=== PATIENT | female | born 1935 | race Caucasian/White ===

== ENCOUNTER 2017-08-22 08:08 | Emergency (ER) | payer OTHER ==
--- NOTE | 2017-08-22 09:24 | RAD ---
FRONTAL VIEW CHEST: Date: 08/22/17 No prior comparison. CLINICAL HISTORY: Chest pain. FINDINGS: There is prominence of the right paramediastinal region. This could be related to enlarged right atri um, although this is nonspecific and limited in assessment on the basis of frontal view. There is ret rocardiac density which may be on the basis of hiatal hernia. Vascular calcification present. There i s linear density at the left lung base indicative of atelectasis. IMPRESSION: 1. Left basilar atelectasis. 2. Prominent right paramediastinal region which could be on the basis of enlarged heart. Follow-up d edicated 2 view chest may be obtained for further evaluation. POS: [facility]
[2017-08-22 09:28] LABS: #Basophils 0.1 thou/uL (0.0-0.2); #Eosinphils 0.1 thou/uL (0.0-0.7); #Lymphocytes 1.1 thou/uL (1.20-3.40); #Monocytes 0.5 thou/uL (0.11-0.59); #Neutrophils 1.9 thou/uL (1.40-6.50); %Basophils 1.8 % (0.0-1.0); %Eosinophils 2.1 % (0.0-10.0); %Lymphocytes 30.9 % (21.0-51.0); %Monocytes 12.6 % (0.0-10.0); %Neutrophils 52.7 % (42.0-75.0); Hemoglobin 13.4 g/dL (12.0-16.0); Mean Corpuscular HGB CONC 32.9 g/dL (32.0-36.0); Mean Corpuscular Hemoglobin 30.5 pg (27.0-31.0); Mean Corpuscular Volume 92.9 fl (81.0-99.0); Mean Platelet Volume 8.2 fL (7.4-10.4); Platelet Count 171 thou/uL (130-400); RBC Distribution Width 13.3 % (11.5-14.5); Red Blood Cell (RBC) Count 4.37 mill/uL (4.20-5.40); White Blood Cell (WBC) Count 3.6 thou/uL (4.8-10.8)
[2017-08-22 09:47] LABS: ALT (SGPT) 8 U/L (8-55); AST (SGOT) 13 U/L (5-34); Albumin 3.5 g/dL (3.4-4.8); Alkaline Phosphatase 74 U/L (40-150); Anion Gap 15 mmol/L (10-20); BUN (Urea Nitrogen) 23 mg/dL (9.8-20.1); Bilirubin, Total 0.4 mg/dL (0.2-1.2); Calc. Creatinine Clearance 0 mL/min (70-130); Calcium 8.9 mg/dL (7.8-10.44); Carbon Dioxide 23 mmol/L (23-31); Chloride 108 mmol/L (98-107); Estimated GFR-MDRD 48; Glucose 103 mg/dL (83-110); Potassium 4.1 mmol/L (3.5-5.1); Protein, Total 6.5 g/dL (6.0-8.3); Sodium 142 mmol/L (136-145)
[2017-08-22 09:49] LABS: CKMB 1.1 ng/mL (0-6.6); Troponin I Less than 0.010 ng/mL (< 0.028)
--- NOTE | 2017-08-22 10:10 | RAD ---
RIGHT HIP TWO VIEWS: HISTORY: An 82-year-old female with a history of right hip pain following a fall this morning. FINDINGS: Severe right hip joint arthrosis changes are noted with joint space loss. Hypertrophic osteophytosis . No evidence for acute fracture. IMPRESSION: Right hip joint arthrosis without acute fracture or dislocation. If the patient cannot ambulate at pre-trauma levels, consider follow-up right hip MRI for further ass essment. POS: [facility]
[2017-08-22] MEDS ORDERED: Benzonatate 100 MG CAP ONE (11:52)
[2017-08-22] MEDS ORDERED: Sodium Chloride 0.9% 1,000 ML BAG ONE (13:40)
== END 2017-08-22 12:00 | disposition home or self-care (01) ==
LOC: MADERS 08:08
DX: J10.1 Influenza due to other identified influenza virus with other respiratory manifestations (principal); M19.90 Unspecified osteoarthritis, unspecified site; I10 Essential (primary) hypertension; K21.9 Gastro-esophageal reflux disease without esophagitis; H54.8 Legal blindness, as defined in USA; Z79.891 Long term (current) use of opiate analgesic; Z79.899 Other long term (current) drug therapy
CPT/HCPCS: 71045; 80053; 82553; 84484; 85025; J7050

== ENCOUNTER 2017-10-27 08:34 | Emergency (ER) | payer MEDICARE ==
[2017-10-27] MEDS ORDERED: Aspirin 325 MG TAB ONE (09:02)
[2017-10-27] MEDS ORDERED: Ketorolac Tromethamine 30 MG/ML VIAL ONE (09:02)
[2017-10-27] MEDS ORDERED: Ondansetron HCl/PF 4 MG/2 ML Vial ONE (09:02)
[2017-10-27 09:21] LABS: PTT 32.5 SEC (22.9-36.1); Prothrombin Time 13.2 SEC (12.0-14.7)
[2017-10-27 09:25] LABS: ALT (SGPT) 7 U/L (8-55); AST (SGOT) 11 U/L (5-34); Albumin 3.9 g/dL (3.4-4.8); Alkaline Phosphatase 76 U/L (40-150); Anion Gap 15 mmol/L (10-20); BUN (Urea Nitrogen) 21 mg/dL (9.8-20.1); Bilirubin, Total 0.3 mg/dL (0.2-1.2); Calc. Creatinine Clearance 0 mL/min (70-130); Calcium 9.6 mg/dL (7.8-10.44); Carbon Dioxide 21 mmol/L (23-31); Chloride 108 mmol/L (98-107); Estimated GFR-MDRD 54; Globulin 2.7 g/dL (2.4-3.5); Glucose 115 mg/dL (83-110); Potassium 4.2 mmol/L (3.5-5.1); Protein, Total 6.6 g/dL (6.0-8.3); Sodium 140 mmol/L (136-145)
[2017-10-27 09:27] LABS: Hemoglobin 13.7 g/dL (12.0-16.0); Mean Corpuscular HGB CONC 33.1 g/dL (32.0-36.0); Mean Corpuscular Volume 90.7 fL (81.0-99.0); Mean Platelet Volume 7.3 fL (7.4-10.4); Platelet Count 240 thou/uL (130-400); RBC Distribution Width 13.1 % (11.5-14.5); Red Blood Cell (RBC) Count 4.57 mill/uL (4.20-5.40); White Blood Cell (WBC) Count 6.7 thou/uL (4.8-10.8)
[2017-10-27 09:28] LABS: #Basophils 0.1 thou/uL (0.0-0.2); #Eosinphils 0.1 thou/uL (0.0-0.7); #Lymphocytes 1.7 thou/uL (1.20-3.40); #Monocytes 0.5 thou/uL (0.11-0.59); #Neutrophils 4.2 thou/uL (1.40-6.50); %Basophils 1.2 % (0.0-1.0); %Eosinophils 1.6 % (0.0-10.0); %Lymphocytes 25.8 % (21.0-51.0); %Monocytes 8.2 % (0.0-10.0); %Neutrophils 63.1 % (42.0-75.0); Manual Diff?? NO
[2017-10-27 10:04] LABS: Bilirubin Negative (Negative); Blood, Urine Negative (Negative); Clarity Clear (Clear); Glucose, Urine (Dipstick) Negative (Negative); Leukocyte Negative (Negative); Nitrite Negative (Negative); Protein, Urine (Dipstick) Negative (Neg-Trace); Specific Gravity, Urine 1.015 (1.005-1.030); Urobilinogen 0.2 mg/dL (0.2-1.0)
[2017-10-27] MEDS ORDERED: Iopamidol 370 76% 100 ML VIAL ONE (10:05)
--- NOTE | 2017-10-27 10:05 | RAD ---
UPRIGHT PORTABLE CHEST 1 VIEW: HISTORY: An 82-year-old female with a history of weakness. COMPARISON: 08/22/17. FINDINGS: Poor inspiration. Minimal cardiomegaly. Monitor leads overlie the chest. Increased density in the retrocardiac region, possibly evidence for a hiatal hernia. IMPRESSION: Cardiomegaly. No confluent pneumonia, overt edema, or pleural effusion. Overall stable chest from p rior exam. POS: [facility]
[2017-10-27 10:10] LABS: Bacteria/HPF 1+ HPF (None Seen); RBC/HPF None Seen HPF (0-3); WBC/HPF 0-3 HPF (0-3)
--- NOTE | 2017-10-27 15:36 | CT ---
CONTRAST ENHANCED CT IMAGES OF ABDOMEN AND PELVIS 10/27/17 HISTORY: Low abdominal pain. Contrast enhanced CT images of the abdomen and pelvis demonstrate the lung bases to be unremarkable. No evidence of free intraperitoneal air is seen. There is a moderate sized paraesophageal hiatal hernia. The liver and spleen are unremarkable. The gallbladder has been surgically removed. The pancreas is u nremarkable. The right adrenal gland is unremarkable. Small area of fullness is seen in the left adrenal gland, to o small to characterize further. Followup CT in six months may be of use to evaluate for interval barrett nge. The kidneys are unremarkable except for somewhat atrophied. Atherosclerotic calcification of the abdominal aorta seen. No dilated loops of small bowel is seen. Numerous colonic diverticula are present without evidence of diverticulitis. This is especially promi nent in the sigmoid colon. Numerous lumbar degenerative changes seen. There is a small umbilical hernia without evidence of herniation or fat into it. The patient has had a previous hysterectomy. IMPRESSION: 1. Paraesophageal hernia. 2. Small umbilical hernia. 3. Colonic diverticulosis. POS: [facility]
== END 2017-10-27 12:34 | disposition home or self-care (01) ==
LOC: MADERS 08:34
DX: K57.92 Diverticulitis of intestine, part unspecified, without perforation or abscess without bleeding (principal); I10 Essential (primary) hypertension; K21.9 Gastro-esophageal reflux disease without esophagitis; Z79.899 Other long term (current) drug therapy
CPT/HCPCS: 71045; 74177; 80053; 81001; 83880; 85025; 85610; 85652; 85730; 86140; 87040; 87081; 87086; 87430; 87804; 93005; 94760; 96374; 96375; J1885; J2405

== ENCOUNTER 2018-08-07 10:22 | Emergency (ER) | payer MEDICARE ==
[2018-08-07] MEDS ORDERED: Iopamidol 370 76% 100 ML VIAL ONE (10:43)
[2018-08-07 10:54] LABS: #Lymphocytes 1.6 thou/uL (1.20-3.40); #Monocytes 0.5 thou/uL (0.11-0.59); #Neutrophils 6.6 thou/uL (1.40-6.50); %Basophils 0.6 % (0.0-1.0); %Eosinophils 0.5 % (0.0-10.0); %Lymphocytes 18.5 % (21.0-51.0); %Monocytes 5.9 % (0.0-10.0); %Neutrophils 74.5 % (42.0-75.0); Mean Corpuscular HGB CONC 30.7 g/dL (32.0-36.0); Mean Corpuscular Hemoglobin 28.1 pg (27.0-31.0); Mean Corpuscular Volume 91.6 fL (78.0-98.0); Mean Platelet Volume 6.8 fL (7.4-10.4); Platelet Count 231 thou/uL (130-400); RBC Distribution Width 14.7 % (11.5-14.5); Red Blood Cell (RBC) Count 4.63 mill/uL (4.20-5.40); White Blood Cell (WBC) Count 8.9 thou/uL (4.8-10.8)
[2018-08-07 11:13] LABS: ALT (SGPT) 7 U/L (8-55); AST (SGOT) 11 U/L (5-34); Albumin 3.9 g/dL (3.4-4.8); Alkaline Phosphatase 89 U/L (40-150); Anion Gap 15 mmol/L (10-20); BUN (Urea Nitrogen) 17 mg/dL (9.8-20.1); Bilirubin, Total 0.6 mg/dL (0.2-1.2); Calc. Creatinine Clearance 0 mL/min (70-130); Calcium 9.8 mg/dL (7.8-10.44); Carbon Dioxide 25 mmol/L (23-31); Chloride 105 mmol/L (98-107); Estimated GFR-MDRD 58; Globulin 2.9 g/dL (2.4-3.5); Glucose 107 mg/dL (83-110); Lipase 5 U/L (8-78); Potassium 4.6 mmol/L (3.5-5.1); Protein, Total 6.8 g/dL (6.0-8.3); Sodium 140 mmol/L (136-145)
[2018-08-07 12:35] LABS: Bilirubin Negative (Negative); Blood, Urine Trace (Negative); Clarity Clear (Clear); Glucose, Urine (Dipstick) Negative (Negative); Leukocyte Trace (Negative); Nitrite Negative (Negative); Protein, Urine (Dipstick) Negative (Neg-Trace); Urobilinogen 0.2 mg/dL (0.2-1.0); pH, Urine 6.5 (5.0-9.0)
[2018-08-07 12:36] LABS: RBC/HPF 0-3 HPF (0-3); Squamous Epithelial 0-3 HPF (0-3)
[2018-08-07 12:37] LABS: Bacteria/HPF Rare-Few HPF (None Seen)
--- NOTE | 2018-08-07 13:29 | CT ---
CT CHEST WITH CONTRAST CT ABDOMEN WITH CONTRAST CT PELVIS WITH CONTRAST: Date: 08/07/18 HISTORY: Periumbilical pain. COMPARISON: CT abdomen and pelvis dated 10/27/17. FINDINGS: There appears to be similar round atelectasis in the right middle lobe with bronchiectasis. No pneumo thorax. No effusion. No suspicious pulmonary nodule. Large sliding hiatal hernia is present, similar. There are multiple thyroid masses which are suspicio us. The largest is in the right lobe, measuring up to 3.0 cm in size. No mediastinal adenopathy. No pericardial effusion. No axillary adenopathy. Prior cholecystectomy. The liver and spleen are unremarkable. There is diffuse atrophy of the pancreas. There is a mass at the left adrenal gland measuring up to 11.0 mm, indeterminate. This is not definit ively an adenoma. Extensive diverticular disease sigmoid colon without active current inflammation. There is a fat-cont aining umbilical hernia with a narrow neck without evidence of ischemic change. The appendix was visu alized and was normal. No dilated loops of large or small bowel. No retroperitoneum adenopathy. Celiac trunk and superior me senteric arteries are patent. Extensive atherosclerotic plaque of the aorta. No aneurysmal dilatation . No free intraperitoneal gas or fluid. Severe degenerative disease of the right hip with subcortical c yst formation and sclerosis, as well as articular surface remodeling. Advanced degenerative disease o f the pubic symphysis. No acute compression fracture. Moderate levoscoliosis of the upper lumbar spin e. No suspicious osteolytic or osteoblastic lesions. No acute rib fracture. IMPRESSION: 1. Abnormal masses of both lobes of the thyroid, for which a nonemergent ultrasound is recommended. 2. Indeterminate left adrenal mass measuring up to 1.1 cm in size. A follow-up CT or MRI adrenal pro tocol in 3-6 months is recommended. 3. Small, fat-containing umbilical hernia without evidence of obstruction. 4. No free intraperitoneal gas or fluid. No acute inflammatory process. 5. Large sliding hiatal hernia, similar. 6. Severe degenerative disease of the right hip. 7. Mild hyperenhancement of mucosa of the left renal pelvis and proximal ureter may be sequelae of i nfection. The left ureter has the appearance of an insertion upon the anterolateral left urinary blad ana maria wall and not the normal posterolateral location. A CT urogram may be beneficial. Recommend correl ation with history of prior ureteral reimplantation. POS: [facility]
[2018-08-07] MEDS ORDERED: Cephalexin 500 MG CAP ONE (14:11)
== END 2018-08-07 14:13 | disposition home or self-care (01) ==
LOC: MADERS 10:22
DX: M25.552 Pain in left hip (principal); M25.551 Pain in right hip; N39.0 Urinary tract infection, site not specified; M54.9 Dorsalgia, unspecified; I10 Essential (primary) hypertension; K21.9 Gastro-esophageal reflux disease without esophagitis; F41.9 Anxiety disorder, unspecified; M19.90 Unspecified osteoarthritis, unspecified site
CPT/HCPCS: 71260; 74177; 80053; 81003; 81015; 83605; 83690; 83880; 84484; 85025; 93005

== ENCOUNTER 2018-09-12 14:53 | Emergency (ER) | payer MEDICARE ==
[~2018-09-12 14:53] MED LIST: Sodium Chloride 0.9% 1,000 ML BAG ONE
[2018-09-12 15:19] LABS: #Basophils 0.1 thou/uL (0.0-0.2); #Eosinphils 0.1 thou/uL (0.0-0.7); #Lymphocytes 2.9 thou/uL (1.20-3.40); #Monocytes 0.6 thou/uL (0.11-0.59); #Neutrophils 5.7 thou/uL (1.40-6.50); %Basophils 0.7 % (0.0-1.0); %Eosinophils 1.1 % (0.0-10.0); %Lymphocytes 30.8 % (21.0-51.0); %Monocytes 6.4 % (0.0-10.0); Hemoglobin 13.6 g/dL (12.0-16.0); Mean Corpuscular HGB CONC 30.8 g/dL (32.0-36.0); Mean Corpuscular Hemoglobin 29.1 pg (27.0-31.0); Mean Corpuscular Volume 94.5 fL (78.0-98.0); Mean Platelet Volume 6.2 fL (7.4-10.4); Platelet Count 259 thou/uL (130-400); RBC Distribution Width 14.7 % (11.5-14.5); Red Blood Cell (RBC) Count 4.68 mill/uL (4.20-5.40); White Blood Cell (WBC) Count 9.3 thou/uL (4.8-10.8)
[2018-09-12 15:27] LABS: INR-International Normal Ratio 0.9; Prothrombin Time 12.2 SEC (12.0-14.7)
[2018-09-12 15:28] LABS: PTT 29.4 SEC (22.9-36.1)
[2018-09-12 15:36] LABS: ALT (SGPT) Less than 7 U/L (8-55); AST (SGOT) 9 U/L (5-34); Albumin 4.1 g/dL (3.4-4.8); Alkaline Phosphatase 83 U/L (40-150); Anion Gap 14 mmol/L (10-20); BUN (Urea Nitrogen) 22 mg/dL (9.8-20.1); Bilirubin, Total 0.3 mg/dL (0.2-1.2); Calc. Creatinine Clearance 0 mL/min (70-130); Calcium 9.5 mg/dL (7.8-10.44); Carbon Dioxide 24 mmol/L (23-31); Chloride 106 mmol/L (98-107); Estimated GFR-MDRD 65; Globulin 2.6 g/dL (2.4-3.5); Glucose 94 mg/dL (83-110); Potassium 3.9 mmol/L (3.5-5.1); Protein, Total 6.7 g/dL (6.0-8.3); Sodium 140 mmol/L (136-145)
--- NOTE | 2018-09-12 15:54 | RAD ---
AP PORTABLE CHEST: History: Stroke. FINDINGS: Comparison 10-27-17. Heart size is slightly enlarged. There are atherosclerotic changes of the aorta. Lungs are clear of a ny infiltrates. No signs of failure. IMPRESSION: No active intrathoracic disease. POS: [facility]
[2018-09-12] MEDS ORDERED: Aspirin Chewable 81 MG TAB ONE (15:57)
--- NOTE | 2018-09-12 15:58 | CT ---
CT BRAIN NONCONTRAST: HISTORY: 83 year old female with altered mental status, disorientation. This stroke alert protocol report was called STAT to Dr. Tapia at 1532 hours on 09/12/18. FINDINGS: There is no midline shift or any other mass effect. There is no evidence of acute intracranial hemor rhage, large cortical infarct, obstructive hydrocephalus, or extraaxial fluid collection. The calvar ium is intact. There is a metallic foreign body which is at least 0.3 cm in size in the anterior portion of the righ t globe, replacing the [place] lens. The bilateral globes maintain their normal size and shape. IMPRESSION: 1. No acute intracranial findings. 2. Ocular telescope prosthesis within the right globe. CODE CR. jn [] POS: [facility]
[2018-09-12] MEDS ORDERED: Aspirin 300 MG Suppository ONE (16:13)
[2018-09-12 16:24] LABS: Bilirubin Negative (Negative); Blood, Urine Negative (Negative); Clarity Clear (Clear); Glucose, Urine (Dipstick) Negative (Negative); Leukocyte Negative (Negative); Nitrite Negative (Negative); Protein, Urine (Dipstick) Negative (Neg-Trace); Specific Gravity, Urine 1.025 (1.005-1.030); Urobilinogen 0.2 mg/dL (0.2-1.0); pH, Urine 5.5 (5.0-9.0)
== END 2018-09-12 16:16 | disposition short-term general hospital (02) ==
LOC: MADERS 14:53
DX: I63.9 Cerebral infarction, unspecified (principal); I10 Essential (primary) hypertension; K21.9 Gastro-esophageal reflux disease without esophagitis; M19.90 Unspecified osteoarthritis, unspecified site
CPT/HCPCS: 36416; 51702; 70450; 71045; 80053; 81003; 83880; 84484; 85025; 85610; 85730; 93005; J7050

== ENCOUNTER 2018-10-08 09:36 | Emergency (ER) | payer MEDICARE ==
[2018-10-08] MEDS ORDERED: Acetaminophen 325 MG TAB ONE (10:14)
[2018-10-08] MEDS ORDERED: Diazepam 5 MG TAB ONE (10:14)
[2018-10-08] MEDS ORDERED: HYDROcodone/Acetaminophen 5/325 mg Tablet ONE (10:14)
[2018-10-08] MEDS ORDERED: Dexamethasone 4 MG TAB ONE (10:14)
[2018-10-08 10:37] LABS: #Eosinphils 0.1 thou/uL (0.0-0.7); #Lymphocytes 1.7 thou/uL (1.20-3.40); #Monocytes 0.5 thou/uL (0.11-0.59); #Neutrophils 4.4 thou/uL (1.40-6.50); %Basophils 0.7 % (0.0-1.0); %Eosinophils 1.3 % (0.0-10.0); %Monocytes 7.6 % (0.0-10.0); %Neutrophils 65.5 % (42.0-75.0); Hemoglobin 13.1 g/dL (12.0-16.0); Mean Corpuscular HGB CONC 30.8 g/dL (32.0-36.0); Mean Corpuscular Hemoglobin 28.9 pg (27.0-31.0); Mean Corpuscular Volume 93.7 fL (78.0-98.0); Mean Platelet Volume 6.9 fL (7.4-10.4); Platelet Count 250 thou/uL (130-400); RBC Distribution Width 13.2 % (11.5-14.5); Red Blood Cell (RBC) Count 4.53 mill/uL (4.20-5.40); White Blood Cell (WBC) Count 6.7 thou/uL (4.8-10.8)
[2018-10-08 11:03] LABS: ALT (SGPT) 12 U/L (8-55); AST (SGOT) 11 U/L (5-34); Albumin 3.9 g/dL (3.4-4.8); Alkaline Phosphatase 87 U/L (40-150); Anion Gap 16 mmol/L (10-20); BUN (Urea Nitrogen) 25 mg/dL (9.8-20.1); Bilirubin, Total 0.5 mg/dL (0.2-1.2); Calc. Creatinine Clearance 0 mL/min (70-130); Calcium 9.9 mg/dL (7.8-10.44); Carbon Dioxide 23 mmol/L (23-31); Chloride 107 mmol/L (98-107); Estimated GFR-MDRD 50; Globulin 2.9 g/dL (2.4-3.5); Glucose 104 mg/dL (83-110); Protein, Total 6.8 g/dL (6.0-8.3); Sodium 142 mmol/L (136-145)
[2018-10-08 11:22] LABS: Bilirubin Small (Negative); Blood, Urine Negative (Negative); Glucose, Urine (Dipstick) Negative (Negative); Leukocyte Trace (Negative); Nitrite Negative (Negative); Protein, Urine (Dipstick) 30 mg/dL (Neg-Trace); Specific Gravity, Urine 1.025 (1.005-1.030); Urobilinogen 0.2 mg/dL (0.2-1.0)
[2018-10-08 11:31] LABS: Clarity Hazy (Clear)
[2018-10-08 11:32] LABS: Bacteria/HPF Rare-Few HPF (None Seen); RBC/HPF 0-3 HPF (0-3); WBC/HPF 21-50 HPF (0-3)
== END 2018-10-08 11:47 | disposition home or self-care (01) ==
LOC: MADERS 09:36
DX: F41.1 Generalized anxiety disorder (principal); Z86.73 Personal history of transient ischemic attack (TIA), and cerebral infarction without residual deficits
CPT/HCPCS: 80053; 81003; 81015; 84443; 85025; 99283; J8540

== ENCOUNTER 2018-12-04 10:07 | Inpatient (IN) | payer MEDICARE ==
[2018-12-04] MEDS ORDERED: Morphine 4 MG/ML VIAL ONE (11:19)
[2018-12-04] MEDS ORDERED: Meropenem 1 GM VIAL ONE (11:20)
[2018-12-04] MEDS ORDERED: Ondansetron PF 4 MG/2 ML Vial ONE (11:20)
[2018-12-04] MEDS ORDERED: Sodium Chloride 0.9% 1,000 ML ONE (11:20)
[2018-12-04] MEDS ORDERED: Sodium Chloride 0.9% 100 ML ONE (11:20)
[2018-12-04 11:27] LABS: #Basophils 0.1 thou/uL (0.0-0.2); #Eosinphils 0.1 thou/uL (0.0-0.7); #Lymphocytes 1.2 thou/uL (1.20-3.40); #Monocytes 0.6 thou/uL (0.11-0.59); %Basophils 0.8 % (0.0-1.0); %Eosinophils 1.2 % (0.0-10.0); %Lymphocytes 11.1 % (21.0-51.0); %Monocytes 5.1 % (0.0-10.0); %Neutrophils 81.8 % (42.0-75.0); Hemoglobin 10.3 g/dL (12.0-16.0); Mean Corpuscular HGB CONC 31.8 g/dL (32.0-36.0); Mean Corpuscular Hemoglobin 28.8 pg (27.0-31.0); Mean Corpuscular Volume 90.6 fL (78.0-98.0); Mean Platelet Volume 5.9 fL (7.4-10.4); Platelet Count 280 thou/uL (130-400); RBC Distribution Width 13.7 % (11.5-14.5); Red Blood Cell (RBC) Count 3.59 mill/uL (4.20-5.40)
[2018-12-04 11:43] LABS: ALT (SGPT) Less than 7 U/L (8-55); AST (SGOT) 12 U/L (5-34); Albumin 3.3 g/dL (3.4-4.8); Alkaline Phosphatase 98 U/L (40-150); Anion Gap 13 mmol/L (10-20); BUN (Urea Nitrogen) 15 mg/dL (9.8-20.1); Bilirubin, Total 0.4 mg/dL (0.2-1.2); Calc. Creatinine Clearance 0 mL/min (70-130); Calcium 9.3 mg/dL (7.8-10.44); Carbon Dioxide 25 mmol/L (23-31); Chloride 106 mmol/L (98-107); Estimated GFR-MDRD 52; Globulin 2.7 g/dL (2.4-3.5); Glucose 99 mg/dL (83-110); Sodium 140 mmol/L (136-145)
[2018-12-04 12:11] LABS: Bilirubin Negative (Negative); Blood, Urine Moderate (Negative); Clarity Cloudy (Clear); Glucose, Urine (Dipstick) Negative (Negative); Leukocyte Small (Negative); Nitrite Positive (Negative); Protein, Urine (Dipstick) > or equal to 300 mg/dL (Neg-Trace); Specific Gravity, Urine 1.025 (1.005-1.030); Urobilinogen 0.2 mg/dL (0.2-1.0)
[2018-12-04 12:15] LABS: RBC/HPF 21-50 HPF (0-3); Squamous Epithelial 0-3 HPF (0-3)
[2018-12-04 12:16] LABS: Bacteria/HPF 2+ HPF (None Seen)
[2018-12-04 13:57] VITALS: BMI 38.8
[2018-12-04] MEDS ORDERED: Ondansetron PF 4 MG/2 ML Vial SLOW IVP PRN (14:29)
[2018-12-04] MEDS ORDERED: Ondansetron ODT 4 MG TAB PO PRN (14:29)
[2018-12-04] MEDS ORDERED: Sodium Chloride 0.9% 1,000 ML IV SCH (14:29)
[2018-12-04] MEDS ORDERED: HYDROcodone/Acetaminophen 5/325 mg Tablet PO PRN ×2 (14:29)
[2018-12-04] MEDS ORDERED: Acetaminophen 325 MG TAB PO PRN (14:29)
[2018-12-04] MEDS ORDERED: Acetaminophen 650 MG Suppository PR PRN (14:29)
[2018-12-04] MEDS ORDERED: Allopurinol 100 MG TAB PO PRN (16:00)
[2018-12-04] MEDS ORDERED: Acetaminophen/Codeine 30-300mg Tablet PO PRN (16:00)
[2018-12-04] MEDS: Sodium Chloride 0.9% 1,000 ML IV SCH (16:22)
[2018-12-04] MEDS: Meropenem 1 GM in Sodium Chloride 0.9% 100 ML IVPB SCH (20:11)
[2018-12-04] MEDS: Aspirin 81 mg Enteric Coated Tablet PO SCH (20:11)
[2018-12-04] MEDS: DULoxetine 30 MG CAP PO SCH (20:12)
[2018-12-04] MEDS: Lisinopril 10 MG TAB PO SCH (20:12)
[2018-12-04] MEDS: Gabapentin 300 MG CAP PO SCH (20:12)
[2018-12-05] MEDS: Sodium Chloride 0.9% 1,000 ML IV SCH (00:07)
[2018-12-05] MEDS: Meropenem 1 GM in Sodium Chloride 0.9% 100 ML IVPB SCH (04:12)
[2018-12-05 05:11] LABS: #Basophils 0.1 thou/uL (0.0-0.2); #Eosinphils 0.2 thou/uL (0.0-0.7); #Lymphocytes 1.3 thou/uL (1.20-3.40); #Monocytes 0.4 thou/uL (0.11-0.59); #Neutrophils 3.3 thou/uL (1.40-6.50); %Basophils 1.1 % (0.0-1.0); %Lymphocytes 23.6 % (21.0-51.0); %Monocytes 8.4 % (0.0-10.0); %Neutrophils 62.9 % (42.0-75.0); Hemoglobin 9.7 g/dL (12.0-16.0); Mean Corpuscular HGB CONC 30.5 g/dL (32.0-36.0); Mean Corpuscular Hemoglobin 28.7 pg (27.0-31.0); Mean Corpuscular Volume 94.2 fL (78.0-98.0); Mean Platelet Volume 6.1 fL (7.4-10.4); Platelet Count 214 thou/uL (130-400); RBC Distribution Width 13.9 % (11.5-14.5); Red Blood Cell (RBC) Count 3.36 mill/uL (4.20-5.40); White Blood Cell (WBC) Count 5.3 thou/uL (4.8-10.8)
[2018-12-05 05:28] LABS: Anion Gap 13 mmol/L (10-20); BUN (Urea Nitrogen) 14 mg/dL (9.8-20.1); Calc. Creatinine Clearance 80 mL/min (70-130); Calcium 8.6 mg/dL (7.8-10.44); Carbon Dioxide 21 mmol/L (23-31); Chloride 111 mmol/L (98-107); Estimated GFR-MDRD 62; Glucose 90 mg/dL (83-110); Potassium 4.2 mmol/L (3.5-5.1); Sodium 141 mmol/L (136-145); Uric Acid 6.8 mg/dL (2.6-6.0)
[2018-12-05] MEDS: Aspirin 81 mg Enteric Coated Tablet PO SCH ×2 (08:22→21:37)
[2018-12-05] MEDS: Enoxaparin Sodium 40 MG/0.4 ML SYRINGE SC SCH (08:23)
[2018-12-05] MEDS: Nitrofurantoin Monohyd/M-Cryst 100 MG CAP PO SCH ×2 (08:23→21:37)
--- NOTE | 2018-12-05 08:48 | HP ---
CHIEF COMPLAINT: Urinary tract infection and left back pain. PRESENT ILLNESS: The patient is a very pleasant 83-year-old white female, who has a history of hypertension, TIAs, chronic low back pain, depression that is controlled, peripheral neuropathy and arthritis. The patient had been hospitalized. The patient had been having increased pain in her back and right hip and had been referred to neurosurgeons for evaluation after she was not getting much help from the epidural steroid injections given to her by pain management physician, Dr. Grimes. The spinal surgeons reviewed her back and said she had severe spondylosis that had previously been helped to some degree with epidural steroid injections and rhizotomies. They did not feel like there was a good surgical option. In further evaluation, she was found to have severe arthritic right hip causing pain with any ambulation and probably producing a lot of the pain that she had been experiencing. She was referred over to see Dr. Asa Mcdowell, orthopedic surgeon, who recommended a right hip replacement. The patient was hospitalized at [facility] from 11/19/2018 to 11/24/2018 and underwent a right hip replacement. She did very well postop with the exception that she had some confusion from the anesthesia that gradually resolved. She was able to get up and ambulate and had a marked reduction in the pain with weightbearing in that right hip. While hospitalized, she did develop symptoms of urinary tract infection with pyuria. She was treated with IV Rocephin and symptoms improved. Cultures came back from 11/20/2018 with no growth. She was discharged on Levaquin. The patient did very well and was discharged home on 11/24/2018. She was getting around fine. She lives in a room built on to her daughter's home and her daughter was there to assist her. 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 She says always when she has this increased frequency of urination and urgency and dysuria, there is infection present. Historically, she had some reflux from the bladder into the ureter following a problem with the hysterectomy that required some re- structuring of the left ureter as it enters the bladder and she has had repeated infections. The patient was on Levaquin, but had finished this a few days before this ER presentation. She did not think she was having any fever, but the pain was very severe. In the emergency room, she underwent urine that showed protein greater than 300, specific gravity of 1.025, positive nitrite, rbc's 21-50, wbc's too numerous to count, 0-3 epithelial cells , and 2+ bacteria. Sodium 140, potassium 4, BUN 15, creatinine 1.02, GFR 52, glucose 99, lactic acid 0.9. Liver studies were normal. Albumin 3.3, H and H 10.3 and 32.5 [place] [address] with 82% segs, 11% lymphocytes, and platelet count of 280,000. In the emergency room, the patient was started on IV fluids and urine collected for culture and blood cultures drawn. She was started on meropenem 1 g every 8 hours and was admitted to my care and acute care for acute pyelonephritis. The patient also received a small dose of morphine that has helped her pain. The patient was seen soon after her admission and was very comfortable. She was able to give me a good history of what had happened and complained of since last night, she has had the urinary frequency, urgency and dysuria and now the severe left low back and flank pain. She has had no fever. She is feeling better since she has had the pain medicine and started on the antibiotics. The patient says she has been doing very fine at home since her discharge on 11/24. She is getting around fine in the home with her walker and is using Tylenol for pain and on occasionally will take a Tylenol No.3. PAST HISTORY: Hospitalized at [facility] from 11/19 until 11/24 for right total hip replacement for severe arthritis. Postop course complicated by some confusion from the anesthesia and UTI. Chronic low back pain secondary to severe spondylosis with intermittent radicular symptoms. She is under the care of Dr. Grimes, pain management doctor, has undergone epidural steroid injections and also rhizotomy. Recently saw neurosurgeon who said there was not a good surgical option. The patient has a TIA manifested with expressive aphasia on 09/12/2018. She has had no recurrence. Her CT scan and MRI showed no acute findings. Later, she had a carotid Doppler which showed no significant stenosis. Echocardiogram done on 09/30 showed ejection fraction of 50% to 55% and some mild diastolic dysfunction and mild aortic and mitral and tricuspid insufficiency. She has hypertension and severe depression that has been well controlled. History of attempted suicide, but taking overdose of Xanax in 2018, anxiety, peripheral neuropathy, generalized osteoarthritis, chronic kidney disease, gout, legally blind, but can see figures and can still ambulate, macular degeneration, telescope was placed in the right eye, skin cancers removed from her lip, hiatal hernia, history of small left adrenal masses from CT scan done in July 2018, for which they recommend a repeat CT scan in six months. The same CT scan on 08/07 of the chest showed some probable cyst in the thyroid. 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 PRESENT MEDICATIONS: 1. Omeprazole 20 mg daily. 2. Lisinopril 10 mg daily. 3. Gabapentin 300 mg at bedtime. 4. Cymbalta 60 mg daily at bedtime. 5. Aspirin 81 mg b.i.d. 6. Allopurinol 300 mg at bedtime. 7. Acetaminophen 325 mg two every 4 hours p.r.n. 8. Tylenol No.3 one every 6 hours p.r.n. pain. ALLERGIES: NO KNOWN ALLERGY. REVIEW OF SYSTEMS: GENERAL: The patient said she has not had any recent weight gain or loss. She has had no fever. EYES, EARS, NOSE, and THROAT: The patient said she is legally blind in both eyes. She can see images. Her hearing is good. PULMONARY: No shortness of breath. No orthopnea. CARDIOVASCULAR: No chest pain. GI: No nausea or vomiting. No abdominal pain. No change in bowel habits. : See present illness. EXTREMITIES: No edema. SKIN: No rash. NEUROPSYCHIATRIC: The patient says her spirits have been very good. She has not been depressed. ADLs, the patient has been ambulatory with the use of a walker. She said she has been able to dress herself and she has been able to feed herself. SOCIAL HISTORY: The patient is a . She lives in a room that has been built on to her daughter's house and her daughter is there to assist her as needed. She has a little dog, it was a great company for her and she is anxious to get back home as soon as she can. PHYSICAL EXAMINATION: GENERAL: Shows an 83-year-old white female, who is lying in bed. She is alert, talkative, recognized me by my voice and appears in no distress. VITAL SIGNS: Shows a temperature of 97.9, pulse 75, respirations 18, O2 saturation 97% on room air, blood pressure 173/82. Her weight is 226. Her height is 65 inches. HEENT: Head, normocephalic and atraumatic. Ears, TMs are clear. Eyes, the patient has an artificial telescoping type lens in the right eye. Sclerae are nonicteric. Nose normal. Mouth and throat, normal. NECK: Carotids are equal and strong. No bruits. Thyroid not enlarged. LUNGS: Clear. HEART: Regular rate. No murmurs. ABDOMEN: Soft with no organomegaly nor areas of tenderness. EXTREMITIES: No edema. BACK: The patient was tender along the left CVA and left low back earlier, this is decreased. There is no rash in that area. The incision over the right hip is healing well. There is no Steri-Strips, sutures nor juju present. There is no redness nor drainage. NEUROLOGIC: The patient is alert and oriented to her situation, to person, to place. She has some little increased weakness on the right leg secondary to the recent hip replacement, but otherwise no focal weakness. IMPRESSION: 1. Pyelonephritis, left side. a. History of urinary tract infection during hospitalization on 11/20 to 11/24, initially treated with Rocephin and then switched to Levaquin p.o. that she completed a few days prior to this admission. Urine culture that time had no growth. b. 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 2. Severe arthritis of the right hip. a. Status post right total hip replacement on 11/19/2018 by orthopedic surgeon, Dr. Asa Mcdowell. 3. Hypertension. 4. Transient ischemic attack. a. Manifest with expressive aphasia on 09/12/2018. A workup unrevealing including CT the brain, MRI of the brain, carotid duplex scan and echocardiogram. b. No recurrence as of 12/04/2018. 5. Chronic low back pain. a. Secondary to severe spondylosis with intermittent radiculopathy. b. Status post multiple epidural injections and rhizotomy by Dr. Grimes, chronic pain management doctor. c. Neurosurgeons recently have seen the patient and said there is no surgical option. 6. Severe depression. a. Well controlled as of 12/04/2018. 7. Legally blind. 8. Peripheral neuropathy in the lower extremities. 9. Gait abnormality. a. Secondary to recent right total hip replacement on 11/19/2018. b. Improving as of 12/04/2018. 10. Generalized weakness and deconditioning. a. Improving as of 12/04/2018. 11. Chronic kidney disease. 12. Generalized osteoarthritis. a. Status post bilateral total knee replacements. b. Status post right total hip replacement on 11/19/2018. 13. Gout. 14. Gastroesophageal reflux disease. PLAN: The patient has been admitted to the hospital for IV antibiotics. The patient recently received Rocephin and Levaquin and now the symptoms have recurred. The patient has had urine culture obtained and blood culture obtained and has been placed on meropenem. The patient is feeling much better. We will gradually increase her activities and have PT/OT evaluate her and continue her routine medicines. Job ID: [id number] [facility]
--- NOTE | 2018-12-05 08:49 | PRG ---
DATE OF SERVICE: 12/05/2018 SUBJECTIVE: The patient said she had a very good night. She did not have to get up and urinate through the night, as she had the night before. She is having no dysuria. The left flank and back pain have resolved. OBJECTIVE: GENERAL: The patient is sitting up in a chair. She is very cheerful and appears in no distress. VITAL SIGNS: Her temperature is 97, pulse 70, respirations 18, O2 saturation 96 % on room air, blood pressure 138/63. LUNGS: Clear. HEART: Has a regular rate. EXTREMITIES: No edema. BACK: There is no tenderness. LABORATORY DATA: Shows an H and H of 9.7 and 31.7, white blood cell count 7300 with 63% segs, 24% lymphocytes, and a platelet count of 214,000. Her sodium is 141, potassium 4.2, her BUN is 14, creatinine 0.88, GFR 62, glucose 90, uric acid 6.8. Her urine is growing a gram-negative mia with less than 5000 colony count. Blood cultures have no growth x2. ASSESSMENT: 1. Pyelonephritis, left side. a. History of urinary tract infection during hospitalization on 11/20 to , initially treated with Rocephin and then switched to Levaquin p.o. that she completed one or two days prior to this admission. Urine culture that time had no growth. b. 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 c. Improved. Remains afebrile. No dysuria. No more left back pain. Blood cultures, no growth today. Urine culture less than 5000 colony count as of 2018. 2. Severe arthritis of the right hip. a. Status post right total hip replacement on 11/19/2018 by orthopedic surgeon, Dr. Asa Mcdowell. 3. Hypertension. 4. Transient ischemic attack. a. Manifest with expressive aphasia on 09/12/2018. A workup unrevealing including CT the brain, MRI of the brain, carotid duplex scan and echocardiogram. b. No recurrence as of 12/04/2018. 5. Chronic low back pain. a. Secondary to severe spondylosis with intermittent radiculopathy. b. Status post multiple epidural injections and rhizotomy by Dr. Grimes, chronic pain management doctor. c. Neurosurgeons recently have seen the patient and said there is no surgical option. 6. Severe depression. a. Well controlled as of 12/04/2018. 7. Legally blind. 8. Peripheral neuropathy in the lower extremities. 9. Gait abnormality. a. Secondary to recent right total hip replacement on 11/19/2018. b. Improving as of 12/04/2018. 10. Generalized weakness and deconditioning. a. Improving as of 12/04/2018. 11. Chronic kidney disease. 12. Generalized osteoarthritis. a. Status post bilateral total knee replacements. b. Status post right total hip replacement on 11/19/2018. 13. Gout. 14. Gastroesophageal reflux disease. PLAN: We will stop the IV fluids. We will try switching the patient to oral antibiotics and let Physical Therapy work with her. It is possible that the patient may have had a urine pathogen that was not grown due to the fact she has just been on Levaquin, but we will cover her in the event that she had an upper urinary tract infection. We will place her on Macrobid twice today. Job ID: [id number] [facility]
[2018-12-05] MEDS: Gabapentin 300 MG CAP PO SCH (21:37)
[2018-12-05] MEDS: DULoxetine 30 MG CAP PO SCH (21:37)
[2018-12-05] MEDS: Lisinopril 10 MG TAB PO SCH (21:37)
[2018-12-06 08:31] VITALS: BP 144/80; TEMP 97.4
[2018-12-06] MEDS: Aspirin 81 mg Enteric Coated Tablet PO SCH (08:38)
[2018-12-06] MEDS: Nitrofurantoin Monohyd/M-Cryst 100 MG CAP PO SCH (08:38)
[2018-12-06] MEDS: Enoxaparin Sodium 40 MG/0.4 ML SYRINGE SC SCH (08:38)
--- NOTE | 2018-12-06 11:40 | DIS ---
DATE OF ADMISSION: 12/04/2018 DATE OF DISCHARGE: 12/06/2018 FINAL DIAGNOSES: 1. Pyelonephritis, left side. a. History of urinary tract infection during hospitalization on 11/20 to , initially treated with Rocephin and then switched to Levaquin p.o. that she completed one or two days prior to this admission. Urine culture that time had no growth. b. 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 c. Improved. Remains afebrile. No dysuria. No more left back pain. Blood cultures, no growth today. Urine culture less than 5000 colony count as of 2018. 2. Severe arthritis of the right hip. a. Status post right total hip replacement on 11/19/2018 by orthopedic surgeon, Dr. Asa Mcdowell. b. Doing well, transferring independently and ambulating with the use of a walker. 3. Hypertension. 4. Transient ischemic attack. a. Manifest with expressive aphasia on 09/12/2018. A workup unrevealing including CT the brain, MRI of the brain, carotid duplex scan and echocardiogram. b. No recurrence as of 12/04/2018. 5. Chronic low back pain. a. Secondary to severe spondylosis with intermittent radiculopathy. b. Status post multiple epidural injections and rhizotomy by Dr. Grimes, chronic pain management doctor. c. Neurosurgeons recently have seen the patient and said there is no surgical option. 6. Severe depression. a. Well controlled as of 12/04/2018. 7. Legally blind. 8. Peripheral neuropathy in the lower extremities. 9. Gait abnormality. a. Secondary to recent right total hip replacement on 11/19/2018. b. Improving as of 12/04/2018. 10. Generalized weakness and deconditioning. a. Improving as of 12/04/2018. 11. Chronic kidney disease. 12. Generalized osteoarthritis. a. Status post bilateral total knee replacements. b. Status post right total hip replacement on 11/19/2018. 13. Gout. 14. Gastroesophageal reflux disease. REASON FOR ADMISSION: The patient is an 83-year-old white female, who lives at home with her daughter and has been ambulatory with the use of a walker and able to take care of her ADLs with some occasional assistance and need for help with all her instrumental ADLs. The patient has chronic low back pain from severe spondylosis , for which she is under pain management. She developed increasing pain that extended down to the right hip and was found to have a severely arthritic right hip. She was hospitalized at [facility] on 11/19/2018, and underwent a right total hip replacement by orthopedic surgeon, Dr. Mcdowell. Postop, she did fine with the exception of confusion from the anesthesia that resolved. She also had a urinary tract infection, initially treated with Rocephin and then switched to oral Levaquin. She was discharged on 11/24. She also has history of hypertension, TIA, severe depression, that has been well controlled, and peripheral neuropathy and legally , she is blind, but still able to see images. The patient presented to the emergency room on 12/04/2018 for severe left back pain, urinary frequency, urgency and dysuria. She has a history of injury to her bladder and left ureter during the hysterectomy and required reconstruction of that ureter, where it enters the bladder. She has been left with some chronic reflux from this area and has had trouble with urinary tract infection. Most recently from the hospitalization when she had her hip replacement, when this was treated, she had significant pyuria, but culture was negative. The patient then presented to the ER and was found to have a mild leukocytosis, no fever, but severe pain in that left hip, and her urine had WBCs [id number]. The patient was started on IV fluids, had blood and urine cultures obtained, and then was started on meropenem since she is having recurrence of urinary tract symptoms from an infection and particularly with left flank pain with a history of reflux and was felt to have pyelonephritis. She was started on meropenem in the emergency room, was given a small dose of morphine and admitted for continuation of the IV antibiotics. HOSPITAL COURSE: The patient did very well in the hospital. By that afternoon of day of her admission, she was feeling much better. The pain had resolved. She had no more fever. By 12/05, she was feeling great. She had no fever. No back pain. No dysuria. Her blood cultures had no growth. Her urine culture grew a gram- negative mia of less than 5000 colony count, that no further workup was going to be done. She was doing well and IV antibiotics were switched to oral Macrobid, and this will be continued for 7-day period for the presumptive diagnosis of urinary tract infection and pyelonephritis even though the cultures were negative. By 12/06, she was ambulating with the use of a walker and was very stable, and was transferring independently. The patient had been on oral antibiotics for 24 hours, remained afebrile. It was felt that she could now be managed safely at home with the oral antibiotics, which will be continued for a 10-day period. Her blood cultures one was negative, one had a coagulase-negative Staph, which probably represents contamination. DISPOSITION: DIET: Regular diet. No added salt. ACTIVITIES: Ambulate with the use of a walker. Fall precautions. We will arrange Home Health with in-home physical therapy. MEDICATIONS: 1. Gabapentin 300 mg at bedtime. 2. Acetaminophen 325 mg two every 4 hours as needed for pain. 3. Tylenol No.3 one every 6 hours as needed for pain. 4. Allopurinol 300 mg at bedtime. 5. Aspirin 81 mg b.i.d. 6. Cymbalta 60 mg at bedtime. 7. Lisinopril 10 mg at bedtime. 8. Macrobid 100 mg for 10 days. 9. Omeprazole 20 mg daily. FOLLOWUP: Home Health will see patient, arrange in-home PT. Will see the patient in followup in my office in 2 weeks. CODE STATUS: Full code. Job ID: [id number]
== END 2018-12-06 11:25 | disposition home health service (06) | DRG 690 ==
LOC: MADERS 10:07 → MADMS 13:01
PROVIDERS: ADMIT Family Medicine; ATTEND Family Medicine
DX: N12 Tubulo-interstitial nephritis, not specified as acute or chronic (principal); G89.29 Other chronic pain; M54.5 Low back pain; F32.9 Major depressive disorder, single episode, unspecified; H54.8 Legal blindness, as defined in USA; G62.9 Polyneuropathy, unspecified; R26.9 Unspecified abnormalities of gait and mobility; I12.9 Hypertensive chronic kidney disease with stage 1 through stage 4 chronic kidney disease, or unspecified chronic kidney disease; N18.9 Chronic kidney disease, unspecified; K21.9 Gastro-esophageal reflux disease without esophagitis; M10.9 Gout, unspecified; Z96.641 Presence of right artificial hip joint; Z96.653 Presence of artificial knee joint, bilateral; Z86.73 Personal history of transient ischemic attack (TIA), and cerebral infarction without residual deficits; Z79.82 Long term (current) use of aspirin
CPT/HCPCS: 36415; 51701; 80048; 80053; 81003; 81015; 83605; 84484; 84550; 85025; 87040; 87086; 87149; 93005; 96365; 96375; A4353; J1650; J2185; J2270; J2405; J3490; J7050